=== PATIENT | male | born 1940 ===

== ENCOUNTER 2017-06-26 10:57 | Emergency (ER) | payer OTHER ==
[~2017-06-26] VITALS: Ht 180.3 cm; Wt 104.3 kg
[~2017-06-26 10:57] MED LIST: DILT60ER PO; SIMV40 PO
[2017-06-26 11:40] LABS: BASOPHILS ABSOLUTE AUTO 0.05 K/mm3 (0.00-0.23); BASOPHILS PERCENT AUTO 1 % (0-2); EOSINOPHILS PERCENT AUTO 3 % (0-6); Hematocrit 39.9 % (37.0-53.0); Hemoglobin 12.6 g/dL (13.5-17.5); IMMATURE GRAN ABSOLUTE AUTO 0.02 K/mm3 (0.00-0.10); IMMATURE GRAN PERCENT AUTO 0 % (0-1); LYMPHOCYTES ABSOLUTE AUTO 1.99 K/mm3 (0.84-5.20); LYMPHOCYTES PERCENT AUTO 34 % (21-46); MONOCYTES ABSOLUTE AUTO 0.53 K/mm3 (0.16-1.47); MONOCYTES PERCENT AUTO 9 % (4-13); Mean Corpuscular HGB 28.4 pg (26.0-34.0); Mean Corpuscular HGB Conc 31.6 g/dL (31.5-36.5); Mean Corpuscular Volume 90 fL (80-100); Mean Platelet Volume 12.1 fL (9.1-12.4); NEUTROPHILS ABSOLUTE AUTO 3.07 K/mm3 (1.96-9.15); NEUTROPHILS PERCENT AUTO 52 % (41-73); Platelet Count 171 K/mm3 (150-400); RDW Coefficient Variation 14.9 % (11.7-14.2); RDW Standard Deviation 49.9 fL (35.1-46.3); Red Blood Cell Count 4.44 M/mm3 (4.30-5.90); White Blood Cell Count 5.86 K/mm3 (4.00-11.30)
[2017-06-26 11:55] LABS: Alanine Aminotransfer (ALT/SGP 30 U/L (12-78); Albumin, Blood 4.2 g/dL (3.4-5.0); Albumin/Globulin Ratio 1.1 (0.8-1.8); Alk Phos 84 U/L (50-136); Anion Gap 5 mmol/L (6-16); Aspartate Aminotrans (AST/SGOT 23 U/L (12-37); Bilirubin, Total 0.7 mg/dL (0.1-1.0); Blood Urea Nitrogen 25 mg/dL (8-24); Bun/Creatinine Ratio 21.2 (12.0-20.0); CO2, Blood 29 mmol/L (21-32); Calcium, Blood 8.8 mg/dL (8.5-10.1); Chloride, Blood 107 mmol/L (98-108); Creatinine, Blood 1.18 mg/dL (0.60-1.20); Globulin, Blood 3.7 g/dL (2.2-4.0); Glomerular Filtration Rate >60 (60-); Glucose, Blood 108 mg/dL (70-99); Potassium, Blood 4.3 mmol/L (3.5-5.5); Sodium, Blood 141 mmol/L (136-145); Total Protein, Blood 7.9 g/dL (6.4-8.2); Troponin I <0.015 ng/mL (0.000-0.040)
[2017-06-26 12:06] LABS: International Normalized Ratio 1.04; Prothrombin Time Results 10.8 Sec (9.7-11.5)
[2017-06-26] MEDS ORDERED: XARELTO15 MG PO (16:34)
[2017-06-26] MEDS ORDERED: Toprol Xl25 MG PO (16:34)
[2017-11-04] MEDS ORDERED: LEVSOD75 (14:13)
[2017-11-04] MEDS ORDERED: ATOR20 (14:13)
[2017-11-04] MEDS ORDERED: MAGOXI400 (14:14)
[2017-11-04] MEDS ORDERED: XARELTO20 MG (14:14)
[2017-11-04] MEDS ORDERED: METO50ER (14:15)
== END 2017-06-26 16:50 | disposition home or self-care (01) ==
LOC: ER 10:57
PROVIDERS: Emergency Medicine
DX: I48.91 Unspecified atrial fibrillation (principal); E03.9 Hypothyroidism, unspecified; E78.00 Pure hypercholesterolemia, unspecified; Z79.899 Other long term (current) drug therapy
CPT/HCPCS: 36415; 71046; 80053; 84443; 84484; 85025; 85610; 93005; 93010; 96360; 99284; J7030

== ENCOUNTER 2017-11-05 07:05 | Day surgery (SDC) | payer OTHER ==
[~2017-11-05] VITALS: Ht 180.3 cm; Wt 109.0 kg
[~2017-11-05 07:05] MED LIST changes: +ATOR20; +LEVSOD75; +MAGOXI400; +METO50ER; +Toprol Xl25 MG PO; +XARELTO15 MG PO; +XARELTO20 MG
[2017-11-05] MEDS ORDERED: Protonix40 M1 PO (07:57)
[2017-11-05] MEDS ORDERED: Aspir 8181 MG PO (07:57)
[2017-11-05] MEDS ORDERED: MAGOXI400 PO (07:58)
[2017-11-05] MEDS ORDERED: Co Q-10100 MG (07:58)
[2017-11-05] MEDS ORDERED: VITAMIN D32000 UNIT PO (07:59)
[2017-11-05] MEDS ORDERED: SLOW RELEASE I250 MG PO (08:02)
[2017-11-05] MEDS ORDERED: Isosorbide Mono30 MG PO (09:37)
== END 2017-11-05 13:45 | disposition home or self-care (01) ==
LOC: MHTC 07:05
PROC: B211YZZ Fluoroscopy of Multiple Coronary Arteries using Other Contrast (ICD-10-PCS; principal; 2017-11-05)
PROC: 4A023N7 Measurement of Cardiac Sampling and Pressure, Left Heart, Percutaneous Approach (ICD-10-PCS; principal; 2017-11-05)
DX: I25.10 Atherosclerotic heart disease of native coronary artery without angina pectoris (principal); I25.5 Ischemic cardiomyopathy; R94.39 Abnormal result of other cardiovascular function study; R53.83 Other fatigue; R06.02 Shortness of breath
CPT/HCPCS: 93458; 99152; C1769; C1894; J1644; J2250; J3010; J7030; Q9967

== ENCOUNTER → 2018-05-28 | Outpatient (CLI) | payer OTHER ==
[~2018-05-28] MED LIST changes: +Aspir 8181 MG PO; +Co Q-10100 MG; +Isosorbide Mono30 MG PO; +MAGOXI400 PO; +Protonix40 M1 PO; +SLOW RELEASE I250 MG PO; +VITAMIN D32000 UNIT PO
[2018-05-28 13:26] LABS: Stool Occult Bld Immuno 1 Negative (NEGATIVE)
== END | disposition home or self-care (01) ==
LOC: LAB EV 11:10
PROVIDERS: Family Medicine
DX: D64.9 Anemia, unspecified (principal)
CPT/HCPCS: G0328

== ENCOUNTER 2019-02-03 00:02 | Day surgery (SDC) | payer OTHER | END 2019-02-03 10:08 | disposition home or self-care (01) | LOC: ATC 00:02 | DX: R42 Dizziness and giddiness (principal); I25.10 Atherosclerotic heart disease of native coronary artery without angina pectoris; I25.5 Ischemic cardiomyopathy; I48.91 Unspecified atrial fibrillation; E78.5 Hyperlipidemia, unspecified; E03.9 Hypothyroidism, unspecified; Z95.1 Presence of aortocoronary bypass graft; Z79.899 Other long term (current) drug therapy; Z79.82 Long term (current) use of aspirin; Z87.891 Personal history of nicotine dependence | CPT/HCPCS: 36415; 80400; 82533; 96372; J0834 ==

== ENCOUNTER 2021-08-13 06:03 | Day surgery (SDC) | payer OTHER ==
[~2021-08-13] VITALS: Ht 180.3 cm; Wt 93.3 kg
[~2021-08-13 06:03] MED LIST changes: -ATOR20; +ATOR20 PO; -Co Q-10100 MG; +Co Q-10100 MG PO; +FLUDROCORTISON0.1 M1 PO; -LEVSOD75; +LEVSOD75 PO; -METO50ER; +METO50ER PO
--- NOTE | 2021-08-13 07:03 | NUR ---
Ambulatory in Day Surgery History, Chart, Medications and Allergies reviewed before start of procedure. Lungs clear T/O to Auscultation. Pre-Op teaching done. Pt verbalizes understanding.
--- NOTE | 2021-08-13 10:33 | NUR ---
DISCHARGE SUMMARY PT A&OX4, VSS/RA, TCDB, YASEMIN PO H20, VOIDED, AMB SBA TO WC, PAIN MANAGED/ABD BINDER ON, LEFT FLOOR VIA WC WITH VOLUNTEER TO GO HOME WITH WITH ALL PERSONAL POSSESSIONS INCLUDING DC PACKET, CPAP, GLASSES. IV DC'D.
== END 2021-08-13 10:28 | disposition home or self-care (01) ==
LOC: ORSCMMR 06:03 → ORD 07:30 → ORSCMMR 10:28
PROVIDERS: Surgery
PROC: 0WUF0JZ Supplement Abdominal Wall with Synthetic Substitute, Open Approach (ICD-10-PCS; principal; 2021-08-13 07:30)
DX: K42.9 Umbilical hernia without obstruction or gangrene (principal); I25.10 Atherosclerotic heart disease of native coronary artery without angina pectoris; I48.91 Unspecified atrial fibrillation; N18.30 Chronic kidney disease, stage 3 unspecified; E78.5 Hyperlipidemia, unspecified; E03.9 Hypothyroidism, unspecified; G47.33 Obstructive sleep apnea (adult) (pediatric); Z87.891 Personal history of nicotine dependence; D50.9 Iron deficiency anemia, unspecified; Z79.899 Other long term (current) drug therapy; Z79.82 Long term (current) use of aspirin
CPT/HCPCS: A9270; C1781; J0690; J1100; J2370; J2405; J2704; J3010; J7120

== ENCOUNTER 2022-11-30 21:07 | Emergency (ER) | payer OTHER ==
[~2022-11-30] VITALS: Ht 180.3 cm; Wt 97.5 kg
[2022-11-30 23:43] LABS: Source, Urine Foley catheter
[2022-11-30 23:51] LABS: Bilirubin, Urine Neg (Neg); Blood, Urine 2+ (Neg); Glucose Qualitative, Urine Neg (Neg); Ketones, Urine Neg (Neg); Leukocyte Esterase, Urine Neg (Neg); Nitrite, Urine Neg (Neg); Protein, Urine 1+ (Neg); Urobilinogen, Urine NORM (Normal)
[2022-11-30 23:53] VITALS: BP 137/70
[2022-11-30 23:59] LABS: Appearance, Urine Clear (Clear); Color, Urine Yellow (P-Yellow)
[2022-12-01] LABS: Bacteria Not Seen /hpf; Squamous Epithelial Cells Not Seen /hpf (Few); White Blood Cells, Urine 0-2 /hpf (0-5)
== END 2022-12-01 01:58 | disposition home or self-care (01) ==
LOC: ER 21:07
PROVIDERS: Emergency Medicine
DX: R33.9 Retention of urine, unspecified (principal); K59.00 Constipation, unspecified; Z87.891 Personal history of nicotine dependence
CPT/HCPCS: 51702; 51798; 74018; 81001; 99284-25